=== PATIENT | male | born 1980 | race Caucasian/White ===

== ENCOUNTER → 2017-07-26 08:28 | Outpatient (POV) | payer MEDICARE, MEDICAID, SELFPAY | PROVIDERS: Visit Provider Nurse Practitioner Acute Care | DX: Z00.00 Encounter for general adult medical examination without abnormal findings (principal) ==

== ENCOUNTER → 2017-11-01 14:36 | Outpatient (POV) | payer OTHER, MEDICARE, MEDICAID, SELFPAY | PROVIDERS: Family Provider Internal Medicine; PCP Internal Medicine; Visit Provider Nurse Practitioner Acute Care | DX: Z00.00 Encounter for general adult medical examination without abnormal findings (principal) ==

== ENCOUNTER → 2018-02-14 10:48 | Outpatient (POV) | payer OTHER, MEDICARE, MEDICAID, SELFPAY | PROVIDERS: Visit Provider Nurse Practitioner Acute Care | DX: Z00.00 Encounter for general adult medical examination without abnormal findings (principal) ==

== ENCOUNTER → 2020-09-20 11:59 | Outpatient (CLI) | payer MEDICARE, OTHER, SELFPAY ==
[2020-09-20 12:32] LABS: Basophils # 0.1 K/mm3 (0-0.2); Basophils % 1.2 % (0.1-2.0); Eosinophils # 0.1 K/mm3 (0.0-0.4); Eosinophils % 0.8 % (0.1-12.0); Hematocrit 51.5 % (42.0-52.0); Hemoglobin 17.5 g/dL (14.1-18.0); Lymphocytes # 1.4 K/mm3 (0.7-4.5); Lymphocytes % 12.7 % (10-50); Mean Corpuscular HGB Conc 33.9 g/dL (31.8-35.4); Mean Corpuscular Hemoglobin 30.2 pg (27.0-31.2); Mean Corpuscular Volume 89.2 fl (80-94); Mean Platelet Volume 7.1 fl (7.4-10.4); Monocytes # 0.7 K/mm3 (0.1-1.0); Monocytes % 6.4 % (1.7-9.3); Neutrophils # 8.9 K/mm3 (1.8-7.8); Platelet Count 337 K/mm3 (142-424); Red Blood Count 5.78 M/mm3 (4.60-6.20); Red Cell Distribution Width 12.6 % (11.5-17.5); White Blood Count 11.3 K/mm3 (4.8-10.8)
[2020-09-20 12:36] LABS: Chloride 102 mmol/L (98-107); Potassium 3.6 mmoL/L (3.5-5.1); Sodium 137 mmol/L (136-145)
[2020-09-20 12:39] LABS: Blood Urea Nitrogen 16 mg/dl (9-20); Estimated Glomerular Filt Rate 125 ml/min (>60); GFR (African American) 151 ML/MIN (>60)
[2020-09-20 12:40] LABS: Anion Gap 13.6 mEq/L (5-15); Carbon Dioxide 25 mmol/L (22.0-30.0); Glucose 135 mg/dl (74-100)
== END ==
PROVIDERS: Visit Provider Surgery
DX: L05.91 Pilonidal cyst without abscess (principal); Z01.812 Encounter for preprocedural laboratory examination; Z20.822 Contact with and (suspected) exposure to COVID-19
CPT/HCPCS: 36415; 80048; 85025; U0003

== ENCOUNTER 2020-09-20 13:03 | Day surgery (SDC) | payer MEDICARE, OTHER, SELFPAY ==
[2020-09-20] VITALS (10 sets, daily range): BP systolic 126–160; BP diastolic 75–86; PULSE 90–100; RESP 12–20; TEMP 36.2–37.1; O2SAT 93–100; BMI 56.0
--- NOTE | 2020-09-20 16:46 | P.OP_ITS ---
Date of procedure: 09/20/20 Pre-op Diagnosis:: Pilonidal cyst with abscess Post-op Diagnosis:: Same Procedure performed:: Incision and drainage of complex pilonidal cyst with abscess Surgeon:: Reyes Green MD FIELD CANE SCALER:: Other Anesthesia: LMA Estimated blood loss (mL): 40 Clinical Note:: Patient is a 40-year-old male. He was seen in his primary care provider's office today, Dr. Lars Cardoza, and was noted to have a significant pilonidal abscess. Patient states that this has been present for about 1 week. Due to the progressively severe pain he had presented to his physician today. Surgery was contacted as felt this needed urgent incision and drainage. He was seen in the office and arrangements were made for operative incision and drainage of severe pilonidal abscess. On examination he had an area in the mid gluteal cleft consistent with pilonidal disease. There was surrounding erythema and induration. To the left of the gluteal cleft there was an area of necrosis of superficial tissues with significant fluctuance. Operative findings:: Consistent with significant pilonidal abscess. Operative note:: Patient was taken the operating room. General anesthesia was induced via LMA. Ultimately adequate airway was established and patient was able to be positioned somewhat in the lateral position. The area was prepped and draped. There was some spontaneous drainage. There is evidence of necrosis of the superficial tissues. Incision was made at site of fluctuance immediately to the left of the mid gluteal cleft. A large amount of bloody pus exuded from the wound. This was sent for cultures. The wound was probed. There was an appreciable abscess cavity. This was opened superiorly to unroofed the abscess cavity. There was some oozing from the deep tissues and electrocautery was used for adequate hemostasis. Wound was thoroughly irrigated. Local anesthetic was infiltrated. The wound was packed with saline moistened Kerlix gauze segment. Clean dry sterile dressing was applied. Condition: stable Disposition: PACU Specimens:: Culture sent Complications:: None immediately apparent
--- NOTE | 2020-09-20 17:18 | P.PN_ITS ---
[facility] Anesthesia Checklist - Patient Identification Patient Identification: Arm Band - Structural Data Admitted From: Home Planned Operative Procedure/s: I & D Pilonidal Cyst Consent for Planned Operative Procedure(s) Verified: Yes Verified Documents: Surgical Consent, History and Physical - NPO Status Verified Time NPO: 00:00 - Additional verifications Anesthesia Reactions: No Hx Blood Transfusions: No Blood Transfusion Reaction: No - Airway Assessment C-Spine Mobility Assessed: Yes TMJ Mobility Assessed: Yes Dentition: Good Dentition - Neurological Assessment Level of Consciousness: Awake, Alert - Anesthesia Plan Anesthesia Risk discussed: Yes Anesthesia Plan: Verified ASA Class: IV Anesthesia Type: General (Gross obesity) [facility] History Medical History: Reports:: Hyperlipidemia, Hypertension, Lung Disease, Seizures Denies:: Cancer, Diabetes Mellitus Type 1, Diabetes Mellitus Type 2, Internal Pacemaker, MRSA *Have you ever received a pneumonia vaccine?: No *Have you received a flu vaccine this season?: No Other Medical History: Reports: Other. Denies: Blood Transfusion Reaction Anesthesia experience/problems:: None Other Surgeries: No: Pacemaker Amputation: No Fractures: No - *Social History Last grade of school completed: High school graduate Smoking Status: Current every day smoker Tobacco Type: cigarettes # Packs/Day (cigarettes): 1 Alcohol Intake: current Alcohol Intake Frequency:: holidays/special occasions only Substance Use Type: denies use *Occupational Status:: employed Housing: house *Travel in the last 8 weeks: None Family Hx:: Diabetes, Stroke
--- NOTE | 2020-09-20 17:20 | HMH.ANESI ---
[facility] Anesthesia Record Part I Intake, IV Amount: 600 Estimated blood loss (mL): 1 Urine output (mL): 0 Blood Pressure: 129/75 SaO2: 100 Pulse Rate: 97 Respiratory Rate: 12 Temperature: 97.1 F Patient is:: Awake, Drowsy Stable to PACU at:: 16:52
--- NOTE | 2020-09-24 07:30 | HMH.ANESII ---
[facility] Anesthesia Record Part II Discharge Time: 17:12 Destination: Surgical Day Care (OP Surgery) PACU nurse assessment reviewed?: Yes Patient Condition:: Good Anesthesia Complications:: None Swallowing reflex intact?: Yes Cyanosis?: No Blood Pressure: 131/86 Pulse Rate: 94 Temperature: 97.3 F Mental Status: Alert & Oriented Pain level:: 0 Nausea and/or vomitting:: None Intake, IV Amount: 600
[2020-09-24 07:31] VITALS: BP 131/86; PULSE 94; TEMP 36.3
== END 2020-09-20 17:43 | disposition home or self-care (01) ==
LOC: OR 13:06
PROVIDERS: PCP Internal Medicine; Visit Provider Surgery
PROC: (CPT 11770; principal; 2020-09-20 14:30)
DX: L05.01 Pilonidal cyst with abscess (principal); E78.5 Hyperlipidemia, unspecified; I10 Essential (primary) hypertension; R56.9 Unspecified convulsions; J98.4 Other disorders of lung; Z72.0 Tobacco use; Z82.3 Family history of stroke; Z83.3 Family history of diabetes mellitus; Z79.899 Other long term (current) drug therapy; Z20.822 Contact with and (suspected) exposure to COVID-19
CPT/HCPCS: 11770; 36415; 80048; 85025; 87070; 87075; 87077; 87186; 87205; 96374; U0003

== ENCOUNTER 2020-09-21 09:55 | Outpatient (CLI) | payer MEDICARE, SELFPAY ==
[2020-09-21 11:05] VITALS: BP 147/91; PULSE 88; RESP 20; TEMP 37; O2SAT 94
== END 2020-09-21 20:40 | disposition home or self-care (01) ==
LOC: INF 09:56
PROVIDERS: PCP Internal Medicine; Visit Provider Surgery
DX: L05.01 Pilonidal cyst with abscess (principal); Z48.01 Encounter for change or removal of surgical wound dressing
CPT/HCPCS: G0463

== ENCOUNTER 2020-09-22 10:17 | Outpatient (CLI) | payer MEDICARE, SELFPAY ==
[2020-09-22 10:42] VITALS: BP 155/90; PULSE 75; RESP 18; O2SAT 95
== END 2020-09-22 20:38 | disposition home or self-care (01) ==
LOC: INF 10:18
PROVIDERS: PCP Internal Medicine; Visit Provider Surgery
DX: L05.01 Pilonidal cyst with abscess (principal); Z48.01 Encounter for change or removal of surgical wound dressing
CPT/HCPCS: G0463

== ENCOUNTER 2020-09-24 10:35 | Outpatient (CLI) | payer MEDICARE, SELFPAY | END 2020-09-24 10:50 | disposition home or self-care (01) | LOC: INF 10:37 | PROVIDERS: Visit Provider Surgery | DX: L05.01 Pilonidal cyst with abscess (principal); Z48.01 Encounter for change or removal of surgical wound dressing | CPT/HCPCS: G0463 ==

== ENCOUNTER 2020-09-25 14:00 | Outpatient (CLI) | payer MEDICARE, SELFPAY | END 2020-09-25 14:15 | disposition home or self-care (01) | LOC: INF 15:56 | PROVIDERS: Visit Provider Surgery | DX: L05.01 Pilonidal cyst with abscess (principal); Z48.01 Encounter for change or removal of surgical wound dressing | CPT/HCPCS: G0463 ==

== ENCOUNTER 2020-09-26 13:02 | Outpatient (CLI) | payer MEDICARE, SELFPAY | END 2020-09-26 13:05 | disposition home or self-care (01) | LOC: INF 13:02 | PROVIDERS: Visit Provider Surgery | DX: L05.01 Pilonidal cyst with abscess (principal); Z48.01 Encounter for change or removal of surgical wound dressing | CPT/HCPCS: G0463 ==

== ENCOUNTER 2020-09-28 12:34 | Outpatient (CLI) | payer MEDICARE, SELFPAY | END 2020-09-28 13:05 | disposition home or self-care (01) | LOC: INF 12:35 | PROVIDERS: PCP Internal Medicine; Visit Provider Surgery | DX: L05.01 Pilonidal cyst with abscess (principal); Z48.01 Encounter for change or removal of surgical wound dressing | CPT/HCPCS: G0463 ==

== ENCOUNTER → 2020-09-29 20:18 | Outpatient (CLI) | payer MEDICARE, SELFPAY ==
[2020-09-29 20:42] VITALS: BP 144/76; PULSE 87; RESP 16; TEMP 37.1; O2SAT 97
--- NOTE | 2020-09-30 01:57 | PC.NURSE ---
DSG changed per MD order. No drainage noted.
== END ==
PROVIDERS: PCP Family Medicine; Visit Provider Surgery
DX: L05.01 Pilonidal cyst with abscess (principal); Z48.01 Encounter for change or removal of surgical wound dressing
CPT/HCPCS: G0463

== ENCOUNTER 2020-09-30 19:42 | Outpatient (CLI) | payer MEDICARE, SELFPAY ==
[2020-09-30 20:11] VITALS: BP 150/79; PULSE 91; RESP 18; TEMP 37.1; O2SAT 98
== END 2020-09-30 20:11 | disposition home or self-care (01) ==
LOC: INF 19:44
PROVIDERS: PCP Internal Medicine; Visit Provider Surgery
DX: L05.01 Pilonidal cyst with abscess (principal); Z48.01 Encounter for change or removal of surgical wound dressing
CPT/HCPCS: G0463

== ENCOUNTER 2020-10-01 11:55 | Outpatient (CLI) | payer MEDICARE, SELFPAY | END 2020-10-01 12:05 | disposition home or self-care (01) | LOC: INF 16:46 | PROVIDERS: Visit Provider Surgery | DX: L05.01 Pilonidal cyst with abscess (principal); Z48.01 Encounter for change or removal of surgical wound dressing | CPT/HCPCS: G0463 ==

== ENCOUNTER 2020-10-02 12:14 | Outpatient (CLI) | payer MEDICARE, SELFPAY | END 2020-10-02 12:20 | disposition home or self-care (01) | LOC: INF 12:14 | PROVIDERS: Visit Provider Surgery | DX: L05.01 Pilonidal cyst with abscess (principal); Z48.01 Encounter for change or removal of surgical wound dressing | CPT/HCPCS: G0463 ==

== ENCOUNTER 2020-10-03 12:22 | Outpatient (CLI) | payer MEDICARE, SELFPAY | END 2020-10-03 12:33 | disposition home or self-care (01) | LOC: INF 12:22 | PROVIDERS: Visit Provider Surgery | DX: L05.01 Pilonidal cyst with abscess (principal); Z48.01 Encounter for change or removal of surgical wound dressing | CPT/HCPCS: G0463 ==

== ENCOUNTER 2020-10-04 12:45 | Outpatient (CLI) | payer MEDICARE, OTHER, SELFPAY | END 2020-10-04 13:00 | disposition home or self-care (01) | LOC: INF 12:49 | PROVIDERS: Visit Provider Surgery | DX: L05.01 Pilonidal cyst with abscess (principal); Z48.01 Encounter for change or removal of surgical wound dressing | CPT/HCPCS: G0463 ==

== ENCOUNTER → 2020-10-05 12:05 | Outpatient (CLI) | payer MEDICARE, OTHER, SELFPAY ==
[2020-10-05 12:26] VITALS: BP 151/79; PULSE 92; RESP 20; TEMP 36.8; O2SAT 94
--- NOTE | 2020-10-05 12:28 | PC.NURSE ---
THIS RN REMOVED OLD DRESSING, SEROUSANGIOUS DRAINAGE NOTED, WET WITH NORMAL SALINE NEW GAUZE WAS PACKED INTO WOUND, COVERED WITH CLEAN DRY GAUZE AND SEALED WITH TEGADERM.
== END ==
PROVIDERS: PCP Internal Medicine; Visit Provider Surgery
DX: L05.01 Pilonidal cyst with abscess (principal); Z48.01 Encounter for change or removal of surgical wound dressing
CPT/HCPCS: G0463

== ENCOUNTER 2020-10-06 17:19 | Outpatient (CLI) | payer MEDICARE, OTHER, SELFPAY | END 2020-10-06 17:45 | disposition home or self-care (01) | LOC: INF 17:22 | PROVIDERS: PCP Internal Medicine; Visit Provider Surgery | DX: L05.01 Pilonidal cyst with abscess (principal); Z48.01 Encounter for change or removal of surgical wound dressing | CPT/HCPCS: G0463 ==

== ENCOUNTER 2020-10-07 13:40 | Outpatient (CLI) | payer MEDICARE, OTHER, SELFPAY | END 2020-10-07 13:52 | disposition home or self-care (01) | LOC: INF 13:52 | PROVIDERS: Visit Provider Surgery | DX: L05.01 Pilonidal cyst with abscess (principal); Z48.01 Encounter for change or removal of surgical wound dressing | CPT/HCPCS: G0463 ==

== ENCOUNTER 2020-10-08 12:45 | Outpatient (CLI) | payer MEDICARE, OTHER, SELFPAY | END 2020-10-08 13:00 | disposition home or self-care (01) | LOC: INF 12:45 | PROVIDERS: Visit Provider Surgery | DX: L05.01 Pilonidal cyst with abscess (principal); Z48.01 Encounter for change or removal of surgical wound dressing | CPT/HCPCS: G0463 ==

== ENCOUNTER 2020-10-09 12:55 | Outpatient (CLI) | payer MEDICARE, OTHER, SELFPAY | END 2020-10-09 13:05 | disposition home or self-care (01) | LOC: INF 12:55 | PROVIDERS: Visit Provider Surgery | DX: L05.01 Pilonidal cyst with abscess (principal); Z48.01 Encounter for change or removal of surgical wound dressing | CPT/HCPCS: G0463 ==

== ENCOUNTER 2020-10-10 13:58 | Outpatient (CLI) | payer MEDICARE, OTHER, SELFPAY | END 2020-10-10 14:44 | disposition home or self-care (01) | LOC: INF 13:58 | PROVIDERS: Visit Provider Surgery | DX: L05.01 Pilonidal cyst with abscess (principal); Z48.01 Encounter for change or removal of surgical wound dressing | CPT/HCPCS: G0463 ==

== ENCOUNTER → 2020-10-12 16:40 | Outpatient (CLI) | payer MEDICARE, OTHER, SELFPAY | PROVIDERS: PCP Internal Medicine; Visit Provider Surgery | DX: L05.01 Pilonidal cyst with abscess (principal); Z48.01 Encounter for change or removal of surgical wound dressing | CPT/HCPCS: G0463 ==

== ENCOUNTER 2020-10-14 12:41 | Outpatient (CLI) | payer MEDICARE, OTHER, SELFPAY | END 2020-10-14 13:02 | disposition home or self-care (01) | LOC: INF 12:41 | PROVIDERS: Visit Provider Surgery | DX: L05.01 Pilonidal cyst with abscess (principal); Z48.01 Encounter for change or removal of surgical wound dressing | CPT/HCPCS: G0463 ==

== ENCOUNTER 2020-10-15 13:24 | Outpatient (CLI) | payer MEDICARE, OTHER, SELFPAY | END 2020-10-15 13:30 | disposition home or self-care (01) | LOC: INF 13:24 | PROVIDERS: Visit Provider Surgery | DX: L05.01 Pilonidal cyst with abscess (principal); Z48.01 Encounter for change or removal of surgical wound dressing | CPT/HCPCS: G0463 ==

== ENCOUNTER 2020-10-16 13:20 | Outpatient (CLI) | payer MEDICARE, OTHER, SELFPAY | END 2020-10-16 13:30 | disposition home or self-care (01) | LOC: INF 13:25 | PROVIDERS: Visit Provider Surgery | DX: L05.01 Pilonidal cyst with abscess (principal); Z48.01 Encounter for change or removal of surgical wound dressing | CPT/HCPCS: G0463 ==

== ENCOUNTER 2020-10-17 13:13 | Outpatient (CLI) | payer MEDICARE, OTHER, SELFPAY | END 2020-10-17 13:25 | disposition home or self-care (01) | LOC: INF 13:13 | PROVIDERS: Visit Provider Surgery | DX: L05.01 Pilonidal cyst with abscess (principal); Z48.01 Encounter for change or removal of surgical wound dressing | CPT/HCPCS: G0463 ==

== ENCOUNTER 2020-10-18 13:06 | Outpatient (CLI) | payer MEDICARE, OTHER, SELFPAY | END 2020-10-18 13:10 | disposition home or self-care (01) | LOC: INF 13:06 | PROVIDERS: Visit Provider Surgery | DX: L05.01 Pilonidal cyst with abscess (principal); Z48.01 Encounter for change or removal of surgical wound dressing | CPT/HCPCS: G0463 ==

== ENCOUNTER 2020-10-21 13:03 | Outpatient (CLI) | payer MEDICARE, OTHER, SELFPAY | END 2020-10-21 13:10 | disposition home or self-care (01) | LOC: INF 13:03 | PROVIDERS: Visit Provider Surgery | DX: L05.01 Pilonidal cyst with abscess (principal); Z48.01 Encounter for change or removal of surgical wound dressing | CPT/HCPCS: G0463 ==

== ENCOUNTER 2020-10-22 13:16 | Outpatient (CLI) | payer MEDICARE, OTHER, SELFPAY | END 2020-10-22 13:20 | disposition home or self-care (01) | LOC: INF 13:16 | PROVIDERS: Visit Provider Surgery | DX: L05.01 Pilonidal cyst with abscess (principal); Z48.01 Encounter for change or removal of surgical wound dressing | CPT/HCPCS: G0463 ==

== ENCOUNTER 2020-10-23 12:52 | Outpatient (CLI) | payer MEDICARE, OTHER, SELFPAY | END 2020-10-23 13:10 | disposition home or self-care (01) | LOC: INF 12:52 | PROVIDERS: Visit Provider Surgery | DX: L05.01 Pilonidal cyst with abscess (principal); Z48.01 Encounter for change or removal of surgical wound dressing | CPT/HCPCS: G0463 ==

== ENCOUNTER 2020-10-24 13:24 | Outpatient (CLI) | payer MEDICARE, OTHER, SELFPAY | END 2020-10-24 13:45 | disposition home or self-care (01) | LOC: INF 13:24 | PROVIDERS: Visit Provider Surgery | DX: L05.01 Pilonidal cyst with abscess (principal); Z48.01 Encounter for change or removal of surgical wound dressing | CPT/HCPCS: G0463 ==

== ENCOUNTER → 2021-04-30 11:01 | Outpatient (CLI) | payer MEDICARE, OTHER, SELFPAY | PROVIDERS: PCP Internal Medicine; Visit Provider Internal Medicine | DX: Z20.822 Contact with and (suspected) exposure to COVID-19 (principal); U07.1 COVID-19 | CPT/HCPCS: 87275; 87276; C9803; U0003; U0005 ==

== ENCOUNTER 2021-05-02 07:13 | Outpatient (CLI) | payer MEDICARE, OTHER, SELFPAY ==
[2021-05-02] VITALS (8 sets, daily range): BP systolic 140–153; BP diastolic 82–92; PULSE 66–79; RESP 16–18; TEMP 36.8; O2SAT 96–98
== END 2021-05-02 10:56 | disposition home or self-care (01) ==
LOC: COVID.OUT 07:17
PROVIDERS: PCP Internal Medicine; Visit Provider Internal Medicine
DX: U07.1 COVID-19 (principal); Z23 Encounter for immunization
CPT/HCPCS: 96365

== ENCOUNTER → 2021-11-26 12:20 | Outpatient (CLI) | payer MEDICARE, OTHER, SELFPAY ==
[2021-11-26 13:08] LABS: Basophils # 0.1 K/mm3 (0-0.2); Basophils % 0.8 % (0.1-2.0); Eosinophils # 0.2 K/mm3 (0.0-0.4); Eosinophils % 2.5 % (0.1-12.0); Hematocrit 52.2 % (42.0-52.0); Hemoglobin 16.5 g/dL (14.1-18.0); Lymphocytes # 1.5 K/mm3 (0.7-4.5); Lymphocytes % 20.6 % (10-50); Mean Corpuscular HGB Conc 31.5 g/dL (31.8-35.4); Mean Corpuscular Hemoglobin 30.2 pg (27.0-31.2); Mean Corpuscular Volume 95.8 fl (80-94); Mean Platelet Volume 8.2 fl (7.4-10.4); Monocytes # 0.5 K/mm3 (0.1-1.0); Monocytes % 7.5 % (1.7-9.3); Neutrophils # 4.9 K/mm3 (1.8-7.8); Neutrophils % 68.5 % (37.0-80.0); Platelet Count 370 K/mm3 (142-424); Red Blood Count 5.45 M/mm3 (4.60-6.20); Red Cell Distribution Width 13.3 % (11.5-17.5); White Blood Count 7.2 K/mm3 (4.8-10.8)
[2021-11-26 13:43] LABS: Alanine Aminotransferase 61 U/L (12-78); Albumin Level 4.1 g/dl (3.5-5.0); Albumin/Globulin Ratio 1.5 (1.1-1.8); Alkaline Phosphatase 144 U/L (38-126); Anion Gap 12.4 mEq/L (5-15); Aspartate Amino Transferase 38 U/L (17-59); Blood Urea Nitrogen 19 mg/dl (9-20); Calcium 9.4 mg/dl (8.4-10.2); Carbon Dioxide 25 mmol/L (22.0-30.0); Chloride 106 mmol/L (98-107); Chol/HDL Ratio 4.7 (1-3.5); Cholesterol 189 mg/dl (140-200); Estimated Glomerular Filt Rate 124 ml/min (>60); GFR (African American) 150 ML/MIN (>60); Globulin 2.7 g/dL (1.3-3.2); Glucose 135 mg/dl (74-100); HDL Cholesterol 40 mg/dl (40-60); Magnesium 1.7 mg/dl (1.6-2.3); Potassium 4.4 mmoL/L (3.5-5.1); Sodium 139 mmol/L (136-145); Total Protein,Serum 6.8 g/dl (6.3-8.2); Triglycerides 138 mg/dl (30-150); VLDL Cholesterol 28 mg/dL (0-40)
[2021-11-26 13:54] LABS: Direct LDL Cholesterol 121.97 mg/dL (100-129)
[2021-11-26 14:12] LABS: Thyroid Stimulating Hormone 0.75 uIU/mL (0.465-4.68)
== END ==
PROVIDERS: PCP Internal Medicine; Visit Provider Internal Medicine
DX: I10 Essential (primary) hypertension (principal); E78.5 Hyperlipidemia, unspecified; I87.2 Venous insufficiency (chronic) (peripheral); R60.9 Edema, unspecified; G80.9 Cerebral palsy, unspecified; M15.0 Primary generalized (osteo)arthritis; G47.33 Obstructive sleep apnea (adult) (pediatric); G47.10 Hypersomnia, unspecified
CPT/HCPCS: 80053; 80061; 83735; 84443; 85025

== ENCOUNTER → 2022-07-15 12:27 | Outpatient (CLI) | payer MEDICARE, OTHER, SELFPAY ==
[2022-07-15 14:56] LABS: Alanine Aminotransferase 28 U/L (12-78); Albumin Level 4.2 g/dl (3.5-5.0); Albumin/Globulin Ratio 1.7 (1.1-1.8); Alkaline Phosphatase 110 U/L (38-126); Anion Gap 14.4 mEq/L (5-15); Aspartate Amino Transferase 22 U/L (17-59); Bilirubin,Total 1.3 mg/dl (0.2-1.3); Blood Urea Nitrogen 22 mg/dl (9-20); Calcium 8.7 mg/dl (8.4-10.2); Carbon Dioxide 28 mmol/L (22.0-30.0); Chloride 99 mmol/L (98-107); Chol/HDL Ratio 4.2 (1-3.5); Cholesterol 191 mg/dl (140-200); Estimated Glomerular Filt Rate 148 ml/min (>60); GFR (African American) 179 ML/MIN (>60); Globulin 2.5 g/dL (1.3-3.2); Glucose 124 mg/dl (74-100); HDL Cholesterol 46 mg/dl (40-60); Magnesium 1.9 mg/dl (1.6-2.3); Potassium 4.4 mmoL/L (3.5-5.1); Sodium 137 mmol/L (136-145); Total Protein,Serum 6.7 g/dl (6.3-8.2); Triglycerides 128 mg/dl (30-150); VLDL Cholesterol 26 mg/dL (0-40)
[2022-07-15 15:07] LABS: Direct LDL Cholesterol 123.08 mg/dL (100-129)
[2022-07-15 15:32] LABS: Basophils # 0.1 K/mm3 (0-0.2); Basophils % 0.6 % (0.1-2.0); Eosinophils # 0.1 K/mm3 (0.0-0.4); Eosinophils % 0.6 % (0.1-12.0); Hematocrit 52.3 % (42.0-52.0); Hemoglobin 16.7 g/dL (14.1-18.0); Lymphocytes # 1.5 K/mm3 (0.7-4.5); Lymphocytes % 13.1 % (10-50); Mean Corpuscular Volume 90.7 fl (80-94); Mean Platelet Volume 8.7 fl (7.4-10.4); Monocytes # 0.6 K/mm3 (0.1-1.0); Monocytes % 4.9 % (1.7-9.3); Neutrophils # 9.1 K/mm3 (1.8-7.8); Neutrophils % 80.8 % (37.0-80.0); Platelet Count 401 K/mm3 (142-424); Red Blood Count 5.77 M/mm3 (4.60-6.20); Red Cell Distribution Width 13.3 % (11.5-17.5); White Blood Count 11.2 K/mm3 (4.8-10.8)
[2022-07-15 17:22] LABS: Hemoglobin A1C 6.2 % (4.0-6.0)
== END ==
PROVIDERS: PCP Internal Medicine; Visit Provider Internal Medicine
DX: I10 Essential (primary) hypertension (principal); R73.01 Impaired fasting glucose; E78.5 Hyperlipidemia, unspecified; I87.2 Venous insufficiency (chronic) (peripheral); G47.33 Obstructive sleep apnea (adult) (pediatric)
CPT/HCPCS: 80053; 80061; 83036; 83735; 85025

== ENCOUNTER → 2022-09-21 11:10 | Outpatient (CLI) | payer MEDICARE, OTHER, SELFPAY ==
--- NOTE | 2022-09-21 11:25 | ECG_ITS ---
APPROVED REPORT Exam: Resting ECG HR:91 bpm ECG Measurements Heart Rate 91 AXES SD 172 P 39 QRSd 98 QRS 16 QT 358 T 59 QTc 407 Conclusion SINUS RHYTHM NONSPECIFIC ST-T ABNORMALITIES-MILD OTHERWISE A NORMAL ECG Electronically signed by : Lars Cardoza MD 09/21/2022 14:39:52
[2022-09-21 12:10] LABS: Troponin I < 0.01 ng/ml (0.00-0.034)
== END ==
PROVIDERS: PCP Internal Medicine; Visit Provider Internal Medicine
DX: R07.9 Chest pain, unspecified (principal)
CPT/HCPCS: 36415; 84484; 93005

== ENCOUNTER → 2022-09-29 07:36 | Outpatient (CLI) | payer MEDICARE, OTHER, SELFPAY ==
--- NOTE | 2022-09-29 | CA_ITS ---
APPROVED REPORT Exam: Pharmacologic Technologist: Eboni Askew, Ht: 5 ft 1 in Wt: 285 lbs BSA: 2.20 m2 HR: 83 bpm BP: 141/73 mmHg Rhythm: NSR,ST-T ABNORMALITIES INFERIORLY Medical History Medical History: HTN, Smoking Medications: Omeprazole,,,,, MeLOXICAM,,,,, SpirOnALCTONE,,,,, AmlopiPINE,,,,, Allergies: No known drug allergies Cardiac Risk Factors: HTN, Smoking, FHX of CAD Stress Test Details Test: LEXISCAN HR Resting HR: 88 bpm Max Heart Rate (APMHR): 178 bpm Max HR Achieved: 114 bpm Target HR (85% APMHR): 151 bpm % of APMHR: 64 Recovery HR: 90 bpm BP Resting BP: 141.0/73.0 mmHg Max BP: 159.0/89.0 mmHg Recovery BP: 146.0/83.0 mmHg ECG Resting ECG: NSR,ST-T ABNORMALITIES INFERIORLY Clinical Exercise duration: 04:04 min Highest Stage Achieved: Stress ECG Conclusion DURING INFUSION PATIENT HAD HEAD DISCOMFORT BUT NO CP. NO ARRHYTHMIAS/ECTOPY. MILD EXAGGERATION OF BASELINE ABNORMALITIES. NON-DIAGNOSTIC LEXISCAN STRESS. MYOVIEW IMAGES REPORTED SEPARATELY, Test Summary REST 02:45 . . 88 . 141/ 73 . . Stage 1 01:00 . . 110 . . . . Stage 2 01:00 . . 104 . . . . Stage 3 01:00 . . 98 . 159/ 89 . . Stage 4 01:00 . . 102 . 152/ 88 . . Stage 4 01:04 . . 101 . 152/ 88 . Stop exercise at 04:04 RECOVERY 01:00 . . 96 . 145/ 91 . . RECOVERY 02:00 . . 91 . 145/ 91 . . RECOVERY 03:00 . . 90 . 146/ 83 . . RECOVERY 03:32 . . 86 . 137/ 82 . . Electronically signed by : China Lewis, 09/30/2022 19:55:24
--- NOTE | 2022-09-29 07:53 | NM_ITS ---
APPROVED REPORT Exam: Nuclear Stress Test Indication: obesity, htn, tob use, fm hx, c.p., sob, fatigue Patient Location: Outpatient Stress Tech: Eboni Askew MD Tech:Jyotsna WakefieldTRISTEN RT (R)(N)(M) Ht: 5 ft 3 in Wt: 284 lbs HR: 83 bpm BP: 141/73 mmHg BSA: 2.24 m2 TID: 1.22 BMI: 50.3 History: obesity, htn, tob use, fm hx, c.p., sob, fatigue Procedure: Patient received 0.4 mg of intravenous Lexiscan, resting heart rate 83 bpm, resting blood pressure 141/73 mmHg, with Lexiscan maximum heart rate achieved was 110 bpm which is % of the maximum predicted heart rate and blood pressure was 159/89 mmHg. With Lexiscan, patient denied any complaint of chest pain. Cardiac Stress and Resting SPECT Images: Cardiac Stress and Resting SPECT images were obtained using technetium 99m Myoview 31.0 mCi stress and 10.50 mCi at rest. Resting and stress imaging in supine position demonstrate medium-sized, mild, partially reversible defects in the anterior and inferior LV adams. Both defects are no longer visualized with prone stress imaging. Findings are suggestive of soft tissue artifact, but true perfusion defects cannot be entirely ruled out. There is increased transient ischemic dilatation ratio (TID=1.22), suggestive of possible balanced ischemia or multivessel disease. Gated imaging demonstrated a normal LV global and regional systolic function. LVEF is calculated at 61% Conclusion: Medium-sized, mild, partially reversible defects in the anterior and inferior LV adams. Both defects are no longer visualized with prone stress imaging. Findings are suggestive of soft tissue artifact, but true perfusion defects cannot be entirely ruled out. There is increased transient ischemic dilatation ratio (TID=1.22), suggestive of possible balanced ischemia or multivessel disease. Gated imaging demonstrated a normal LV global and regional systolic function. LVEF is calculated at 61% Electronically signed by : China Lewis, 09/30/2022 20:08:36
== END ==
PROVIDERS: PCP Internal Medicine; Visit Provider Internal Medicine
DX: R07.9 Chest pain, unspecified (principal)
CPT/HCPCS: 78452; 93017; A9502; J2785

== ENCOUNTER → 2023-01-15 13:22 | Outpatient (CLI) | payer MEDICARE, OTHER, SELFPAY ==
[2023-01-15 14:20] LABS: Basophils % 0.6 % (0.1-2.0); Eosinophils # 0.1 K/mm3 (0.0-0.4); Eosinophils % 2.1 % (0.1-12.0); Hematocrit 53.9 % (42.0-52.0); Hemoglobin 17.3 g/dL (14.1-18.0); Lymphocytes # 1.5 K/mm3 (0.7-4.5); Lymphocytes % 22.3 % (10-50); Mean Corpuscular HGB Conc 32.1 g/dL (31.8-35.4); Mean Corpuscular Hemoglobin 29.6 pg (27.0-31.2); Mean Corpuscular Volume 92.4 fl (80-94); Mean Platelet Volume 8.3 fl (7.4-10.4); Monocytes # 0.4 K/mm3 (0.1-1.0); Monocytes % 6.3 % (1.7-9.3); Neutrophils # 4.7 K/mm3 (1.8-7.8); Neutrophils % 68.6 % (37.0-80.0); Platelet Count 337 K/mm3 (142-424); Red Blood Count 5.83 M/mm3 (4.60-6.20); Red Cell Distribution Width 13.4 % (11.5-17.5); White Blood Count 6.9 K/mm3 (4.8-10.8)
[2023-01-15 15:12] LABS: Alanine Aminotransferase 41 U/L (12-78); Albumin Level 4.3 g/dl (3.5-5.0); Albumin/Globulin Ratio 1.5 (1.1-1.8); Alkaline Phosphatase 130 U/L (38-126); Anion Gap 15.2 mEq/L (5-15); Aspartate Amino Transferase 26 U/L (17-59); Bilirubin,Total 0.8 mg/dl (0.2-1.3); Blood Urea Nitrogen 20 mg/dl (9-20); Calcium 8.8 mg/dl (8.4-10.2); Carbon Dioxide 25 mmol/L (22.0-30.0); Chloride 105 mmol/L (98-107); Chol/HDL Ratio 4.9 (1-3.5); Cholesterol 182 mg/dl (140-200); Estimated Glomerular Filt Rate 148 ml/min (>60); GFR (African American) 179 ML/MIN (>60); Globulin 2.8 g/dL (1.3-3.2); Glucose 117 mg/dl (74-100); HDL Cholesterol 37 mg/dl (40-60); Potassium 4.2 mmoL/L (3.5-5.1); Sodium 141 mmol/L (136-145); Total Protein,Serum 7.1 g/dl (6.3-8.2); Triglycerides 125 mg/dl (30-150); VLDL Cholesterol 25 mg/dL (0-40)
[2023-01-15 15:23] LABS: Direct LDL Cholesterol 118.98 mg/dL (100-129)
== END ==
PROVIDERS: PCP Internal Medicine; Visit Provider Internal Medicine
DX: I10 Essential (primary) hypertension (principal); E78.5 Hyperlipidemia, unspecified; I87.2 Venous insufficiency (chronic) (peripheral)
CPT/HCPCS: 80053; 80061; 85025

== ENCOUNTER 2023-07-23 11:56 | Outpatient (CLI) | payer MEDICARE, SELFPAY ==
[2023-07-23 13:30] LABS: Chloride 105 mmol/L (98-107)
[2023-07-23 13:31] LABS: Potassium 4.2 mmoL/L (3.5-5.1); Sodium 139 mmol/L (136-145)
[2023-07-23 13:33] LABS: Alanine Aminotransferase 49 U/L (12-78); Albumin Level 4.1 g/dl (3.5-5.0); Albumin/Globulin Ratio 1.6 (1.1-1.8); Alkaline Phosphatase 120 U/L (38-126); Anion Gap 12.2 mEq/L (5-15); Aspartate Amino Transferase 30 U/L (17-59); Bilirubin,Total 1.6 mg/dl (0.2-1.3); Blood Urea Nitrogen 22 mg/dl (9-20); Carbon Dioxide 26 mmol/L (22.0-30.0); Cholesterol 206 mg/dl (140-200); Estimated Glomerular Filt Rate 147 ml/min (>60); GFR (African American) 178 ML/MIN (>60); Globulin 2.6 g/dL (1.3-3.2); Total Protein,Serum 6.7 g/dl (6.3-8.2); Triglycerides 133 mg/dl (30-150); VLDL Cholesterol 27 mg/dL (0-40)
[2023-07-23 13:34] LABS: Calcium 9.3 mg/dl (8.4-10.2); Chol/HDL Ratio 5.6 (1-3.5); Glucose 130 mg/dl (74-100); HDL Cholesterol 37 mg/dl (40-60)
[2023-07-23 13:45] LABS: Direct LDL Cholesterol 123.74 mg/dL (100-129)
== END 2023-07-23 23:59 ==
LOC: LAB.DROPOF 12:02
PROVIDERS: PCP Internal Medicine; Visit Provider Internal Medicine
DX: I10 Essential (primary) hypertension (principal); E78.5 Hyperlipidemia, unspecified; G80.9 Cerebral palsy, unspecified; G47.33 Obstructive sleep apnea (adult) (pediatric); R60.9 Edema, unspecified; R73.01 Impaired fasting glucose
CPT/HCPCS: 80053; 80061

== ENCOUNTER 2023-11-17 14:53 | Outpatient (CLI) | payer MEDICARE, SELFPAY ==
[2023-11-17 15:18] LABS: Basophils # 0.1 K/mm3 (0-0.2); Basophils % 0.8 % (0.1-2.0); Eosinophils # 0.1 K/mm3 (0.0-0.4); Eosinophils % 1.4 % (0.1-12.0); Hematocrit 52.2 % (42.0-52.0); Hemoglobin 17.3 g/dL (14.1-18.0); Lymphocytes # 1.4 K/mm3 (0.7-4.5); Lymphocytes % 18.8 % (10-50); Mean Corpuscular HGB Conc 33.2 g/dL (31.8-35.4); Mean Corpuscular Hemoglobin 30.7 pg (27.0-31.2); Mean Corpuscular Volume 92.5 fl (80-94); Monocytes # 0.4 K/mm3 (0.1-1.0); Monocytes % 5.9 % (1.7-9.3); Neutrophils # 5.3 K/mm3 (1.8-7.8); Neutrophils % 73.1 % (37.0-80.0); Platelet Count 303 K/mm3 (142-424); Red Blood Count 5.64 M/mm3 (4.60-6.20); Red Cell Distribution Width 13.4 % (11.5-17.5); White Blood Count 7.3 K/mm3 (4.8-10.8)
[2023-11-17 15:51] LABS: Alanine Aminotransferase 56 U/L (12-78); Albumin/Globulin Ratio 1.4 (1.1-1.8); Alkaline Phosphatase 137 U/L (38-126); Anion Gap 13.9 mEq/L (5-15); Aspartate Amino Transferase 37 U/L (17-59); Blood Urea Nitrogen 21 mg/dl (9-20); Calcium 9.2 mg/dl (8.4-10.2); Carbon Dioxide 25 mmol/L (22.0-30.0); Chloride 104 mmol/L (98-107); Chol/HDL Ratio 5.7 (1-3.5); Cholesterol 226 mg/dl (140-200); Estimated Glomerular Filt Rate 147 ml/min (>60); GFR (African American) 178 ML/MIN (>60); Globulin 2.8 g/dL (1.3-3.2); Glucose 174 mg/dl (74-100); HDL Cholesterol 40 mg/dl (40-60); Potassium 3.9 mmoL/L (3.5-5.1); Sodium 139 mmol/L (136-145); Total Protein,Serum 6.8 g/dl (6.3-8.2); Triglycerides 125 mg/dl (30-150); VLDL Cholesterol 25 mg/dL (0-40)
[2023-11-17 16:02] LABS: Direct LDL Cholesterol 151.92 mg/dL (100-129)
[2023-11-17 16:40] LABS: Hemoglobin A1C 7.5 % (4.0-6.0)
== END 2023-11-17 23:59 | disposition home or self-care (01) ==
LOC: LAB.DROPOF 14:54
PROVIDERS: PCP Internal Medicine; Visit Provider Internal Medicine
DX: R73.02 Impaired glucose tolerance (oral) (principal); E78.5 Hyperlipidemia, unspecified; I10 Essential (primary) hypertension; E66.01 Morbid (severe) obesity due to excess calories; F17.200 Nicotine dependence, unspecified, uncomplicated; G80.9 Cerebral palsy, unspecified; K21.9 Gastro-esophageal reflux disease without esophagitis; M15.0 Primary generalized (osteo)arthritis
CPT/HCPCS: 80053; 80061; 83036; 85025

== ENCOUNTER 2024-06-01 12:28 | Outpatient (CLI) | payer MEDICARE, SELFPAY ==
[2024-06-01 12:36] LABS: Basophils # 0.1 K/mm3 (0-0.2); Basophils % 0.5 % (0.1-2.0); Eosinophils # 0.1 K/mm3 (0.0-0.4); Eosinophils % 1.5 % (0.1-12.0); Hematocrit 54.9 % (42.0-52.0); Lymphocytes # 1.5 K/mm3 (0.7-4.5); Mean Corpuscular HGB Conc 33.3 g/dL (31.8-35.4); Mean Corpuscular Hemoglobin 29.6 pg (27.0-31.2); Mean Corpuscular Volume 88.7 fl (80-94); Mean Platelet Volume 10.2 fl (7.4-10.4); Monocytes # 0.6 K/mm3 (0.1-1.0); Monocytes % 5.8 % (1.7-9.3); Neutrophils # 7.2 K/mm3 (1.8-7.8); Neutrophils % 75.9 % (37.0-80.0); Platelet Count 294 K/mm3 (142-424); Red Blood Count 6.19 M/mm3 (4.60-6.20); Red Cell Distribution Width 13.1 % (11.5-17.5); White Blood Count 9.5 K/mm3 (4.8-10.8)
[2024-06-01 12:39] LABS: Creatinine,Urine Random 71 mg/dL (Not Estab.)
[2024-06-01 12:41] LABS: Microalbumin/Creatinine Ratio 86.6
[2024-06-01 12:59] LABS: Albumin Level 4.5 g/dl (3.5-5.0); Chloride 103 mmol/L (98-107); Potassium 4.4 mmoL/L (3.5-5.1); Sodium 138 mmol/L (136-145)
[2024-06-01 13:02] LABS: Alanine Aminotransferase 48 U/L (12-78); Albumin/Globulin Ratio 1.8 (1.1-1.8); Alkaline Phosphatase 105 U/L (38-126); Anion Gap 16.4 mEq/L (5-15); Aspartate Amino Transferase 35 U/L (17-59); Bilirubin,Total 1.6 mg/dl (0.2-1.3); Blood Urea Nitrogen 20 mg/dl (9-20); Carbon Dioxide 23 mmol/L (22.0-30.0); Cholesterol 192 mg/dl (140-200); Estimated Glomerular Filt Rate 181 ml/min (>60); GFR (African American) 219 ML/MIN (>60); Globulin 2.5 g/dL (1.3-3.2); Triglycerides 150 mg/dl (30-150); VLDL Cholesterol 30 mg/dL (0-40)
[2024-06-01 13:03] LABS: Calcium 9.1 mg/dl (8.4-10.2); Chol/HDL Ratio 5.5 (1-3.5); Glucose 96 mg/dl (74-100); HDL Cholesterol 35 mg/dl (40-60)
[2024-06-01 13:13] LABS: Direct LDL Cholesterol 131.01 mg/dL (100-129)
[2024-06-01 15:11] LABS: Hemoglobin 18.4 g/dL (14.1-18.0)
== END 2024-06-01 23:59 | disposition home or self-care (01) ==
LOC: LAB.DROPOF 12:28
PROVIDERS: PCP Internal Medicine; Visit Provider Internal Medicine
DX: E78.5 Hyperlipidemia, unspecified (principal); I10 Essential (primary) hypertension; E11.9 Type 2 diabetes mellitus without complications; Z79.84 Long term (current) use of oral hypoglycemic drugs; F17.210 Nicotine dependence, cigarettes, uncomplicated
CPT/HCPCS: 80053; 80061; 82043; 82570; 83036; 85025

== ENCOUNTER 2024-06-15 16:50 | Outpatient (CLI) | payer MEDICARE, SELFPAY ==
[2024-06-15 17:18] LABS: Chloride 103 mmol/L (98-107)
[2024-06-15 17:19] LABS: Potassium 4.3 mmoL/L (3.5-5.1); Sodium 137 mmol/L (136-145)
[2024-06-15 17:22] LABS: Anion Gap 13.3 mEq/L (5-15); Blood Urea Nitrogen 14 mg/dl (9-20); Calcium 8.8 mg/dl (8.4-10.2); Carbon Dioxide 25 mmol/L (22.0-30.0); Estimated Glomerular Filt Rate 181 ml/min (>60); GFR (African American) 219 ML/MIN (>60); Glucose 85 mg/dl (74-100)
== END 2024-06-15 23:59 | disposition home or self-care (01) ==
LOC: LAB.DROPOF 16:50
PROVIDERS: PCP Internal Medicine; Visit Provider Internal Medicine
DX: R80.9 Proteinuria, unspecified (principal); I10 Essential (primary) hypertension
CPT/HCPCS: 80048

== ENCOUNTER 2024-07-27 15:11 | Outpatient (CLI) | payer MEDICARE, SELFPAY ==
[2024-07-27 15:30] LABS: Microalbumin/Creatinine Ratio 111.3
[2024-07-27 15:39] LABS: Creatinine,Urine Random 59 mg/dL (Not Estab.)
== END 2024-07-27 23:59 | disposition home or self-care (01) ==
LOC: LAB.DROPOF 15:11
PROVIDERS: PCP Internal Medicine; Visit Provider Internal Medicine
DX: E11.9 Type 2 diabetes mellitus without complications (principal)
CPT/HCPCS: 82043; 82570

== ENCOUNTER 2024-10-23 10:29 | Outpatient (CLI) | payer MEDICARE, SELFPAY ==
[2024-10-23 17:57] LABS: Creatinine,Urine Random 20 mg/dL (Not Estab.)
--- OUTSIDE RECORDS SUMMARY | 2024-10-25 10:43 | XMS_ITS | Clinical Summary ---
Author Organization Healthcare Address [address] [place] [address] Care Team Providers Care Vp Delivery Name Role Phone Unavailable Primary Care Provider Unavailabl e Family History Medical History Relation Name Comments Diabetes Father's Brother Hypertension Other Diabetes Paternal Great-Grandfather Relation Name Status Comments Father's Brother Other Paternal Great-Grandfather Social History Tobacco Use Types Packs/Day Years Used Date Smoking Tobacco: Every Day Sex and Gender Information Value Date Recorded Sex Assigned at Not on file Legal Sex Male 7:42 PM EDT Gender Identity Not on file Sexual Orientation Not on file Plan of Treatment Not on file
== END 2024-10-23 23:59 | disposition home or self-care (01) ==
LOC: LAB.DROPOF 10-25 10:29
PROVIDERS: PCP Internal Medicine; Visit Provider Internal Medicine
DX: R80.9 Proteinuria, unspecified (principal); E11.9 Type 2 diabetes mellitus without complications
CPT/HCPCS: 82043; 82570

== ENCOUNTER 2025-02-27 10:35 | Outpatient (CLI) | payer MEDICARE, SELFPAY ==
[2025-02-27 14:54] LABS: Hematocrit 55.1 % (42.0-52.0); Immature Granulocytes % 0.3 %; Mean Corpuscular HGB Conc 33.4 g/dL (31.8-35.4); Mean Corpuscular Hemoglobin 30.6 pg (27.0-31.2); Mean Corpuscular Volume 91.5 fl (80-94); Nucleated Red Blood Cells % 0 %; Platelet Count 294 K/mm3 (142-424); Red Blood Count 6.02 M/mm3 (4.60-6.20); Red Cell Distribution Width-SD 43.8 fL; White Blood Count 7.9 K/mm3 (4.8-10.8)
[2025-02-27 15:09] LABS: Hemoglobin 18.1 g/dL (14.1-18.0)
[2025-02-27 16:06] LABS: Alanine Aminotransferase 42 U/L (12-78); Albumin Level 4.2 g/dl (3.5-5.0); Albumin/Globulin Ratio 1.3 (1.1-1.8); Alkaline Phosphatase 136 U/L (38-126); Anion Gap 15.2 mEq/L (5-15); Aspartate Amino Transferase 28 U/L (17-59); Bilirubin,Total 1.7 mg/dl (0.2-1.3); Blood Urea Nitrogen 19 mg/dl (9-20); Calcium 8.9 mg/dl (8.4-10.2); Carbon Dioxide 26 mmol/L (22.0-30.0); Chloride 100 mmol/L (98-107); Cholesterol 202 mg/dl (140-200); Creatinine,Serum 0.60 mg/dl (0.66-1.25); Estimated Glomerular Filt Rate 146 ml/min (>60); GFR (African American) 177 ML/MIN (>60); Globulin 3.3 g/dL (1.3-3.2); Glucose 110 mg/dl (74-100); HDL Cholesterol 42 mg/dl (40-60); Potassium 4.2 mmoL/L (3.5-5.1); Sodium 137 mmol/L (136-145); Total Protein,Serum 7.5 g/dl (6.3-8.2); Triglycerides 152 mg/dl (30-150)
[2025-02-27 21:13] LABS: Hemoglobin A1C 5.9 % (4.0-6.0)
--- OUTSIDE RECORDS SUMMARY | 2025-02-28 12:21 | XMS_ITS | Clinical Summary ---
Author Organization Healthcare Address [address] [place] [address] Care Team Providers Care Route Clerk Name Role Phone Unavailable Primary Care Provider [...]
--- OUTSIDE RECORDS SUMMARY | 2025-02-28 12:21 | XMS_ITS | Clinical Summary ---
Author Organization [facility] Address [address] [place] [address] Care Team Providers Care Fan Blade Truer Name Role Phone Lars Cardoza MD Primary Care Provider [phone] Allergies No known active allergies Medications meloxicam (MOBIC) 7.5 MG tablet Take 1 tablet by mouth Daily. 1-2 tablets daily Active pantoprazole (PROTONIX) 40 MG EC tablet 1 tablet Daily. 09/21/2022 Active spironolactone (ALDACTONE) 25 MG tablet Take 3 tablets by mouth Daily. 10/15/2022 Active amLODIPine (NORVASC) 10 MG tablet Take 1 tablet by mouth Daily. 09/25/2022 Active aspirin 81 MG EC tablet Take 1 tablet by mouth Daily. 30 tablet 6 11/10/2022 Active Active Problems Problem Noted Date Diagnosed Date Stable angina pectoris 11/16/2022 Chest pain 11/11/2022 Overview (11/11/2022): Added automatically from request for surgery [id number] Family History Medical History Relation Name Comments Heart attack Father Diabetes Mother Hyperlipidemia Mother Hypertension Mother Relation Name Status Comments Father Mother Alive Sister Alive Social History Tobacco Use Types Packs/Day Years Used Date Smoking Tobacco: Every Day Cigarettes Smokeless Tobacco: Current Tobacco Cessation:Ready to Q uit: Not Asked; Counseling Given: Not Answered Alcohol Use Standard Drinks/Week Comments Yes 0 (1 standard drink = 0.6 oz pur e alcohol) ocass AUDIT-C Answer Date Recorded Q1: How often do you have a drink containing alc ohol? Monthly or less 11/16/2022 Q2: How many drinks containi ng alcohol do you have on a typical day when you are drinking? 3 or 4 11/16/2022 Q3: How often do you have si x or more drinks on one occasion? Never 11/16/2022 PHQ-2 Answer Date Recorded Retired PHQ-9: Brief Depression Severity Measure Score 0 11/16/2022 Abuse Screen Answer Date Recorded Unsafe at Home or Work/School Not on file Feels Threatened by Someone? Not on file 11/2023 Does Anyone Keep You from Co ntacting Others or Doint Things Outside the Home? Not on file 12/08/2023 Physical Sign of Abuse Present Not on file 0 12/08/2023 Housing Stability Answer Date Recorded Current Living Arrangements Not on file 11/2023 Potentially Unsafe Housing Conditions Not on dario e 12/08/2023 Family and Community Support Answer Luiz e Recorded Help with Day-to-Day Activities Not on file 02/12/2023 Lonely or Isolated Not on file 02/12/2023 Employment Answer Date Recorded Do you want help finding or keeping work or a rosemarie b? Not on file 02/12/2023 Disabilities Answer Date Recorded Concentrating, Remembering, or Making Decisions Difficulty Not on file 12/08/2023 Doing Errands Independently Difficulty Not on fi le 12/08/2023 Education Answer Date Recorded Help with school or training? Not on file Preferred Language Not on file 02/12/2023 PHQ-2 Answer Date Recorded Retired PHQ-9: Brief Depression Severity Measure Score 0 11/16/2022 Sex and Gender Information Value Date Recorded Sex Assigned at Not on file Legal Sex Male 4:34 PM EDT Gender Identity Not on file Sexual Orientation Not on file Last Filed Vital Signs Vital Sign Reading Time Taken Comments Blood Pressure 177/105 11/16/2022 12:15 PM EDT post ambulation Pulse 76 11/16/2022 12:00 PM EDT Temperature 36.7 C (98 F) 11/16/2022 7:23 AM EDT Respiratory Rate 16 11/16/2022 9:37 AM EDT Oxygen Saturation 88% 11/16/2022 12: 00 PM EDT Inhaled Oxygen Concentration - - Weight 136 kg (299 lb 13.2 oz) 11/16/2022 7:23 AM EDT Height 162.6 cm (5' 4 ) 11/10/2022 1:48 PM EDT Body Mass Index 51.46 11/10/2022 1:48 PM EDT Plan of Treatment Health Maintenance Due Date Last Done Comments Pneumococcal Vaccine 0-49 (1 of 2 - PCV) 1999 TDAP/TD VACCINES (2 - Tdap) 12/18/2006 12/18/1996 ANNUAL WELLNESS VISIT 11/10/2022 HEPATITIS C SCREENING 11/10/2022 INFLUENZA VACCINE 12/01/2024 Insurance [employer] MED[employer] ADVANTAGE PPO Care Teams Fan Blade Truer Relationship Specialty Start Date End Date Lars Cardoza MD [address] [facility] [address] [place] [id number] PCP - General Internal Medicine 10/07/22
== END 2025-02-27 23:59 ==
LOC: LAB.DROPOF 02-28 12:18
PROVIDERS: PCP Internal Medicine; Visit Provider Internal Medicine
DX: E78.5 Hyperlipidemia, unspecified (principal); E11.9 Type 2 diabetes mellitus without complications; E66.01 Morbid (severe) obesity due to excess calories; M15.0 Primary generalized (osteo)arthritis; I10 Essential (primary) hypertension
CPT/HCPCS: 80053; 80061; 83036; 85025